=== PATIENT | female | born 1935 | race Caucasian/White ===

== ENCOUNTER → 2018-09-29 | Outpatient (CLI) | payer MEDICARE | END | disposition home or self-care (01) | LOC: LAB EV 17:38 → LAB SHORT 17:38 | DX: N39.0 Urinary tract infection, site not specified (principal) | CPT/HCPCS: 87077; 87086; 87186 ==

== ENCOUNTER → 2020-02-24 | Outpatient (CLI) | payer MEDICARE ==
[~2020-02-24] MED LIST: AMITRIPTYLINE H25 MG PO; LATANOPROST2.5 M3 BOTHEYES; Simvastatin10 MG PO; TIMO.25OPS BOTHEYES
== END | disposition home or self-care (01) ==
LOC: LAB SHORT 14:00
DX: R30.9 Painful micturition, unspecified (principal)
CPT/HCPCS: 87086

== ENCOUNTER 2020-08-06 06:18 | Day surgery (SDC) | payer MEDICARE ==
[~2020-08-06] VITALS: Ht 167.6 cm; Wt 66.5 kg
[2020-08-06] MEDS ORDERED: TIMO.25OPS BOTHEYES (07:03)
[2020-08-06] MEDS ORDERED: Simvastatin10 MG PO (07:03)
[2020-08-06] MEDS ORDERED: AMITRIPTYLINE H25 MG PO (07:03)
[2020-08-06] MEDS ORDERED: LATANOPROST2.5 M3 BOTHEYES (07:03)
--- NOTE | 2020-08-06 07:18 | NUR ---
08/06/20 0718 Leti Olmos PT DENREDDYES ALLERGY TO PENICILLIN.
--- NOTE | 2020-08-06 08:20 | NUR ---
08/06/20 0820 Sadie Chopra VERIFIED BY SURGEON AND ANESTHESIA. SURGEON PLACE PELVIC POSITIONERS
== END 2020-08-06 09:57 | disposition home or self-care (01) ==
LOC: ORSCSDS 06:18
PROVIDERS: Orthopaedic Surgery
PROC: 0QB70ZZ Excision of Left Upper Femur, Open Approach (ICD-10-PCS; principal; 2020-08-06 07:30)
PROC: 0LMK0ZZ Reattachment of Left Hip Tendon, Open Approach (ICD-10-PCS; principal; 2020-08-06 07:30)
PROC: 0MBM0ZZ Excision of Left Hip Bursa and Ligament, Open Approach (ICD-10-PCS; principal; 2020-08-06 07:30)
DX: M70.62 Trochanteric bursitis, left hip (principal); M76.02 Gluteal tendinitis, left hip; S76.812A Strain of other specified muscles, fascia and tendons at thigh level, left thigh, initial encounter; Z87.891 Personal history of nicotine dependence
CPT/HCPCS: A9270; C1713; J0171; J0690; J0735; J1100; J1885; J2250; J2370; J2405; J2704; J2710; J2795; J3010; J7120

== ENCOUNTER → 2023-02-19 | Outpatient (CLI) | payer MEDICARE | LOC: LAB SHORT 08:24 → PLD 08:24 | DX: L57.0 Actinic keratosis (principal) | CPT/HCPCS: 88305 ==